=== PATIENT | male | born 1945 | race Caucasian/White ===

== ENCOUNTER 2021-08-11 11:17 | Emergency (ER) | payer OTHER ==
[~2021-08-11] VITALS: Ht 167.6 cm; Wt 89.1 kg
[~2021-08-11 11:17] MED LIST: ASPIRIN 81M81 MG/TA2 PO; LEVAQUIN 5500 MG/TA1 PO; LOPID 600M600 MG/TAB PO; NORVASC 10MG10 MG PO; PRAVACHOL80 MG PO; PREDNISONE10 MG PO; PREDNISONE20 MG PO; PROAIR HFA0.09 MG/AC IH; RT SPIRIVA18 MCG IH; VITAMIN D32000 IU PO; ZESTRIL40 MG PO
[2021-08-11 11:31] VITALS: TEMP 97.9
[2021-08-11 12:32] LABS: BASO # 0.1 K/mm3 (0.0-0.2); BASO % 1.1 % (0.0-2.0); EOS # 0.6 K/mm3 (0.0-0.7); EOS % 7.6 % (0-4.0); GRAN # 5.2 K/mm3 (1.4-6.5); GRAN % 61.4 % (42.2-75.2); HEMATOCRIT 44.2 % (42.0-52.0); HEMOGLOBIN 15.6 g/dl (13.5-18.0); LYMPH # 1.8 K/mm3 (1.2-3.4); LYMPH % 21.5 % (20.0-51.0); MEAN CELL VOLUME 89 fl (80.0-100.0); MEAN CORPUSCULAR HEMOGLOBIN 31 pg (27.0-31.0); MEAN CORPUSCULAR HGB CONC 35 g/dl (33.0-37.0); MEAN PLATELET VOLUME 9.6 fl (7.4-10.4); MONO # 0.7 K/mm3 (0.1-0.6); MONO % 8.2 % (1.7-9.3); PLATELET COUNT 252 K/mm3 (130-400); RED BLOOD COUNT 4.99 M/mm3 (4.20-5.60)
[2021-08-11 12:50] LABS: ALANINE AMINOTRANSFERASE 16 U/L (0-55); ALBUMIN 4.1 gm/dL (3.4-4.8); ALKALINE PHOSPHATASE 77 U/L (0-750); ANION GAP 11 mmol/L (7-16); AST,SGOT 19 U/L (5-34); BILIRUBIN,TOTAL 0.3 mg/dL (0.2-1.2); BLOOD UREA NITROGEN 19 mg/dL (8-26); CALCIUM 9.9 mg/dL (8.4-10.2); CARBON DIOXIDE 31 mmol/L (23-31); CHLORIDE 98 mmol/L (98-107); CREATININE, serum 0.84 mg/dL (0.72-1.25); GLUCOSE 104 mg/dL (70-99); POTASSIUM 3.9 mmol/L (3.5-4.5); SODIUM 140 mmol/L (136-145); TOTAL PROTEIN 7.2 gm/dL (6.2-8.1)
[2021-08-11 13:10] LABS: TSH w REFLEX 1.505 uIU/mL (0.350-4.940)
[2021-08-11 13:11] LABS: TROPONIN-I < 0.010 ng/mL (0.00-0.033)
[2021-08-11] MEDS ORDERED: PREDNISONE50 MG PO (14:25)
[2021-08-11] MEDS ORDERED: DOXYCYCLINE 10100 MG PO (14:25)
[2021-08-11 14:56] VITALS: BP 157/99; PULSE 72
== END 2021-08-11 14:58 | disposition home or self-care (01) ==
LOC: COL.ER 11:17
PROVIDERS: Emergency Medicine
DX: J44.1 Chronic obstructive pulmonary disease with (acute) exacerbation (principal); I10 Essential (primary) hypertension; E78.5 Hyperlipidemia, unspecified; Z79.899 Other long term (current) drug therapy; Z79.52 Long term (current) use of systemic steroids
CPT/HCPCS: J2930

== ENCOUNTER → 2024-08-13 | Outpatient (CLI) | payer OTHER ==
[~2024-08-13] MED LIST changes: +DOXYCYCLINE 10100 MG PO; +Iohexol 300 - 100 ML VIAL IV ONE; +NS 100 ML IV SCH; +PREDNISONE50 MG PO
== END ==
LOC: COL.RAD 09:30
DX: Z01.89 Encounter for other specified special examinations (principal)
CPT/HCPCS: Q9967